=== PATIENT | female | born 1990 | race Caucasian/White ===

== ENCOUNTER 2018-12-20 17:56 | Emergency (ER) | payer OTHER, SELFPAY ==
[2018-12-20 17:59] VITALS: BP 112/76; PULSE 70; RESP 16; TEMP 36.9; O2SAT 100; BMI 31.8
--- NOTE | 2018-12-20 18:03 | DI.RAD.S_ITS ---
PROCEDURE: XR FOOT RT MIN 3V INDICATIONS: pain in foot, difficult to ambulate TECHNIQUE: 3 views of the foot were acquired. COMPARISON: None. FINDINGS: Bones: No fractures or dislocations. No suspicious bony lesions. Mild hallux valgus deformity is seen, with associated focal degenerative change of the 1st metatarsophalangeal joint. Soft tissues: No tibiotalar joint effusion. Achilles tendon appears normal. IMPRESSION: Mild hallux valgus deformity. Dictated by: Mann Bridges M.D. on 12/20/2018 at 18:15 Approved by: Mann Bridges M.D. on 12/20/2018 at 18:15
--- NOTE | 2018-12-20 19:09 | ED_ITS ---
HPI - Extremity Problem General Chief complaint: Extremity Problem,Nontraumatic Stated complaint: RIGHT FOOT PAIN Time Seen by Provider: 12/20/18 18:58 Source: patient Mode of arrival: Ambulatory Limitations: no limitations History of Present Illness HPI Narrative: 28-year-old female here for evaluation of right foot pain. Patient states this is been going on for the past week over worsening over the past 12-24 hours. She has no specific trauma to the right foot. States that many years ago she was diagnosed with a ?stress fracture ?this is greater than 10 years ago. She states that this is in the same location however feels different from that. Has not anything for symptoms prior to arrival. Related Data Allergies Allergy/AdvReac Type Severity Reaction Status Date / Time No Known Drug Allergies Allergy Verified 12/20/18 17:59 Review of Systems Constitutional Constitutional: Denies headache(s) ENT Ears, Nose, Mouth, and Throat: Denies headache(s) Cardiovascular Cardiovascular: Denies chest pain and Denies dyspnea Respiratory Respiratory: Denies dyspnea Gastrointestinal Gastrointestinal: Denies abdominal pain Musculoskeletal Musculoskeletal: Denies numbness and Denies tingling Comments: Right foot pain Integumentary/Breasts Skin/Breast: Denies rash Neurologic Neurologic: Denies behavioral changes, Denies headache(s), Denies numbness, Denies tingling and Denies paresthesias Psychiatric Psychiatric: Denies behavioral changes Hematologic/Lymphatic Hematologic/Lymphatic: Denies easy bleeding and Denies easy bruising Allergic/Immunologic Allergic/Immunologic: Denies urticaria [facility] Medical History Patient denies medical problems (Acute) Social History Smoking Status: Former smoker Social History Smoking Status: Former smoker Exam Initial Vital Signs Initial Vital Signs: Vital Signs Temperature 98.5 F 12/20/18 17:59 Pulse Rate 70 12/20/18 17:59 Respiratory Rate 16 12/20/18 17:59 Blood Pressure 112/76 12/20/18 17:59 Pulse Oximetry 100 12/20/18 17:59 Const General: cooperative, comfortable, well developed and well groomed Orientation: alert and awake [facility] Head: normal to inspection and normocephalic Cardio Pulses: dorsalis pedis present on the right Skin Lesions: no lesions Rashes: no rashes Neuro Gait: normal gait Motor: muscle tone normal throughout Sensory Exam: no sensory deficits noted Extrem Other: Tenderness to palpation of the dorsum medial aspect of the right foot. No Achilles tenderness. The rest of her right foot exam is unremarkable Psych Appearance: grossly normal and well kempt Procedures Orthopedic Splinting/Casting Injury #1: Side: right Lower Extremity Injury Location: foot Lower Extremity Immobilizer: Nav wrap Post splinting neuro exam: intact Post splinting vascular exam: intact Placed by: Nursing Course Orders Ordered: ED Orders 12/20/18 18:03 XR foot RT min 3V Stat Vital Signs Vital signs: Vital Signs - 8 hr 12/20/18 19:16 12/20/18 19:17 Pulse Rate 62 69 Respiratory Rate 16 Blood Pressure 110/72 120/60 Pulse Oximetry 100 99 MDM - Extremity (Nontraumatic) Imaging Data Foot x-ray: Radiologist's impression: [address] [address] XRay Report Signed Patient: Moira Cross [facility]#: [id number] : 1990Acct:[id number] Age/Sex: 28 / FDate of Service: 12/20/18 Loc: ED Accession Number: [id number] Procedure: XR foot RT min 3V Ordering Provider: Paresh Muñoz D.O. PROCEDURE: XR FOOT RT MIN 3V INDICATIONS: pain in foot, difficult to ambulate TECHNIQUE: 3 views of the foot were acquired. COMPARISON: None. FINDINGS: Bones: No fractures or dislocations. No suspicious bony lesions. Mild hallux valgus deformity is seen, with associated focal degenerative change of the 1st metatarsophalangeal joint. Soft tissues: No tibiotalar joint effusion. Achilles tendon appears normal. IMPRESSION: Mild hallux valgus deformity. Dictated by: Mann Bridges M.D. on 12/20/2018 at 18:15 Approved by: Mann Bridges M.D. on 12/20/2018 at 18:[address] [facility] Narrative Medical decision making narrative: X-ray shows no signs of fracture. She is neurovascularly intact. No signs of stress fracture. Did discuss this with the patient. Will hold on further workup for now. She was offered crutches but declined. Was given an Nav bandage for comfort. She was given return precautions. She expressed understanding and agreement plan. Discharge Plan Departure Patient Disposition: Home Clinical Impression: Foot pain, right Discharge Date/Time: 12/20/18 19:17 Instructions: How to Apply an Nav Wrap, DI for Foot Pain Activity Restrictions/Additional Instructions: Keep your foot elevated and use ICE. Use the NAV bandage as needed. Return to the ER for any new or worsening symptoms.
[2018-12-20 19:16] VITALS: BP 110/72; PULSE 62; O2SAT 100
[2018-12-20 19:17] VITALS: BP 120/60; PULSE 69; RESP 16; O2SAT 99
== END 2018-12-20 19:17 | disposition home or self-care (01) ==
PROVIDERS: Emergency Provider Emergency Medicine
DX: M79.671 Pain in right foot (principal)
CPT/HCPCS: 73630; 99283